=== PATIENT | female | born 1950 | race Caucasian/White ===

== ENCOUNTER 2024-06-27 12:10 | Emergency (ER) | payer MEDICARE, BC, SELFPAY ==
[2024-06-27 12:16] VITALS: BP 115/45
[2024-06-27 14:13] VITALS: BP 126/58
[2024-06-27 14:18] LABS: % Basophils 0.3 % (0-2); % Eosinophils 0.6 % (0-6); % Immature Granulocytes 0.3 % (0-0.5); % Lymphocytes 16.1 % (20.5-51.1); % Monocytes 11.3 % (1.7-9.3); % Neutrophils 71.4 % (42.2-75.2); Absolute Monocytes 0.7 10^3/uL (0.1-0.6); Absolute Neutrophils 4.5 10^3/uL (1.4-6.5); Hemoglobin 12.4 g/dL (12.0-16.0); Mean Corp Hgb Conc. 33.5 g/dL (33.0-37.0); Mean Corpuscular Hgb 32.5 pg (27.0-31.0); Mean Corpuscular Volume 96.9 fL (81.0-99.0); Mean Platelet Volume 11.2 fL (7.4-10.4); Nucleated Red Blood Cells % 0 %; Platelet Count 162 10^3/uL (130-400); Red Blood Cell Count 3.82 10^6/uL (4.20-5.40); Red Cell Dist. Width 13.2 % (11.5-14.5); White Blood Cell Count 6.3 10^3/uL (4.8-10.8)
[2024-06-27] MEDS: TYLENOL 1000 MG PO (14:27)
[2024-06-27] MEDS: TORADOL 15 MG IV (14:28)
[2024-06-27] MEDS: NSS 1000 IV (14:28)
[2024-06-27 14:42] LABS: COVID-19 Antigen Positive (Negative)
[2024-06-27 15:00] VITALS: BP 120/56
--- NOTE | 2024-06-27 15:04 | ED.GENMED ---
History of Present Illness
General
Chief Complaint: Generalized Pain
Source: patient
Exam Limitations: none
Time Seen by Provider: 06/27/24 12:43
Nursing documentation reviewed up to this point in time: agreed with
History of Present Illness
History of Present Illness:
The patient is 73-year-old female who reports that she just came home from [place] a few days ago, and about 3 days ago, she developed severe generalized weakness, headache, cough, and bodyaches. She reports that in the middle of the night about 3
days ago, she slipped and fell out of bed. She reports she fell onto her left side. She did not hit her head. She reports she has a history of chronic left-sided sacroiliac pain and feels she exacerbated pain in the area. Patient reports that
she felt so weak that she could not scream out loud enough for her to get her up off the floor. She reports she laid down on the floor for hours. She reports decreased appetite. She denies chest pain or shortness of breath. She denies
vision changes, focal weakness and numbness. She denies vomiting and diarrhea.
Past History
Past History
ED Past Medical History: GERD and Hypothyroidism
ED Past Surgical History: Cholecystectomy, Gynecological, Orthopedic and Tonsilectomy
Social History
Tobacco: Non-smoker
Alcohol: Other
Drug: None
Personal:
Living: with family
Employment: Other
Family History
Family History: Other
Review of Systems
Review of Systems
Allergies reviewed?: Yes
Other source history: family
All Other Systems: ROS reviewed and negative except as documented in HPI and ROS
Constitutional: Reports fatigue and chills
EENT: Reports other (Sinus congestion, runny nose)
Respiratory: Reports cough
Cardiac: Reports no symptoms
ABD/GI: Reports anorexia
: Reports no symptoms
Musculoskeletal: Reports joint swelling (' Left sacroiliac area'), muscle pain and muscle stiffness
Skin: Reports no symptoms
Neurological: Reports headache
Endocrine: Reports no symptoms
Hematologic/Lymphatic: Reports no symptoms
Psychiatric: Reports no symptoms
Phy Exam
Physical Exam
Physical Exam:
Physical Exam
General: Patient appears tired but nontoxic. Is conversational. Sounds nasally congested
Neck: supple. no meningeal signs. normal psoterior pharynx
Heart: s1/s2 regular rate and rhythm, no murmur. equal radial pulses. No chest wall tenderness
Lungs: no acute respiratory distress. clear bilaterally. Patient is coughing. No respiratory distress at all. No vertebral spine tenderness
Abdomen: normal bowel sounds. not tender. no CVAT. Soft throughout
Neuro: alert and oriented. no focal neurological deficits
Skin: no rash
Psychiatric: well kept. interactive and cooperative
Extremities: no edema. no calf tenderness. negative homans. good distal pulses. Atraumatic. Mild left buttock tenderness without any swelling or deformity. Strong pulses of bilateral feet
Course
Orders/Labs/Results
Orders:
Orders
06/27/24 14:11
COVID-19 Antigen Urgent
Source: Nasal Swab
Complete Blood Count/With Diff Urgent
Influenza A+B Rapid Molecular Urgent
VASU Source: Nasal Swab
Specimen Description:
06/27/24 14:20
0.9% Sodium Chloride 1000 ml [Nss] 1,000 ml IV BOLUS
Acetaminophen [Tylenol] 1,000 mg PO NOW STA
Ketorolac [Toradol] 15 mg IV NOW STA
06/27/24 14:21
CR Chest - 2 Views Urgent
Comment:
Reason For Exam: cough
06/27/24 14:22
Hip, Left 2-3 Views [CR Hip - LT w/wo Pel 2-3 Vw*] Urgent
Comment:
Reason For Exam: L sacroiliac pain, fall
Include a pelvis x-ray?: Yes
06/27/24 14:43
Comprehensive Metabolic Panel Urgent
Abnormal Lab Results
06/27/24 06/27/24
14:11 14:43
RBC 3.82 L 10^6/uL
(4.20-5.40)
MCH 32.5 H pg
(27.0-31.0)
MPV 11.2 H fL
(7.4-10.4)
Absolute Lymphs (auto) 1.0 L 10^3/uL
(1.2-3.4)
Absolute Monos (auto) 0.7 H 10^3/uL
(0.1-0.6)
Lymphocytes % 16.1 L %
(20.5-51.1)
Monocytes % 11.3 H %
(1.7-9.3)
Creatinine 1.1 H mg/dL
(0.6-1.0)
AST 39 H U/L
(14-36)
Alkaline Phosphatase 144 H U/L
(38-126)
Total Protein 5.9 L g/dl
(6.3-8.2)
SARS-CoV-2 Antigen Positive A
(Negative)
06/27/24 14:11
06/27/24 14:43
Vital Signs
Initial and Last Documented VS:
Initial Vital Signs
Temp Pulse Resp BP Pulse Ox
97.8 F 69 18 115/45 100
06/27/24 12:16 06/27/24 12:16 06/27/24 12:16 06/27/24 12:16 06/27/24 12:16
Last Documented Vital Signs
Temp Pulse Resp BP Pulse Ox
97.8 F 76 18 120/56 95
06/27/24 12:16 06/27/24 15:15 06/27/24 15:15 06/27/24 15:00 06/27/24 15:15
MDM/Problems Addressed
Differential Diagnosis Includes:
Pneumonia, acute viral illness such as COVID or influenza, lumbar spine fracture, left hip fracture, acute dehydration, acute rhabdomyolysis
MDM/Problems Addressed:
Patient presents with acute generalized weakness, chills, and cough
Chronic conditions affecting care:
Patient states she has chronic sacroiliac pain and this fall out of bed may have exacerbated this pain
Acute Exacerbation and/or Progression of Chronic Illness:
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
*Radiology
Radiology exam reviewed: preliminary read by ED provider (Chest x-ray read by me. No acute disease. Left hip x-ray and pelvis reviewed by me. No acute fracture) and radiology read reviewed
*Pulse Oximetry
Patient hypoxic: no
*EKG
Interpreted by ED Provider?: NA
*Assistant Women'S Basketball Coach Interpretation
Rate: normal
Rhythm: sinus
*Critical Care Note
Total Time (30-74mins, 75-104mins- exclusive of procedures): Not Applicable
Data Reviewed
Source: patient and spouse
Patient Management
Social determinants of health affecting care: Living situation and Strong social support
Escalation/DeEscalation of care consider admission/obs:
Patient states she feels much better. Symptoms are consistent with a viral illness/COVID. Patient is breathing comfortably without any tachypnea or hypoxia. She is able to self hydrate.
ED Attending Note
-
Portions of this chart may have been created with voice recognition software.� Occasional wrong word or��sound alike� substitutions may have occurred due to the inherent limitations of voice recognition software.
Discharge Plan
Departure
Patient Disposition: Home (Routine Discharge)
Date of Disposition: 06/27/24
Time of Disposition: 16:41
Patient with high blood pressure during this ER visit?: No
Condition: Good
Covid-19: Confirmed COVID-19
Discharge Problem:
COVID
Instructions: COVID-19 ED, Coronavirus Home Quarantine
Prescriptions:
No Action
prednisone 20 MG tablet
40 mg PO DAILY Qty: 6 0RF
oxycodone-acetaminophen 5 MG/325 MG tablet
1 tab PO Q4HPRN PRN (Reason: Pain) Qty: 15 0RF
Referrals:
Bryce Gómez MD [Family Provider] -
Activity Restrictions/Additional Instructions:
Take 650 mg of Tylenol every 4 hours for any fever. In addition, you could also take 400 mg of Advil/ibuprofen every 6-8 hours with food for fever or body discomfort
Interventions
Interventions:
*Risk Screen - Suicide Last Done: 06/27/24 12:16
*General Assessment Last Done: 06/27/24 12:16
*Neglect/Abuse Screening Last Done: 06/27/24 12:16
ED- Fall Risk Assessment Last Done: 06/27/24 14:47
*ED COVID-19 Vaccine History Last Done: 06/27/24 16:53
*Nursing Disposition Last Done: 06/27/24 16:53
Discharge Date and Time
Print Language: CITIZEN OF [place]
[2024-06-27 15:11] LABS: ALT (SGPT) 21 U/L (0-35); AST (SGOT) 39 U/L (14-36); Albumin 3.5 g/dl (3.5-5.0); Alkaline Phosphatase 144 U/L (38-126); Blood Urea Nitrogen 17 mg/dl (7-17); Calcium 8.7 mg/dl (8.4-10.2); Carbon Dioxide 22 mmol/L (22-30); Chloride 107 mmol/L (98-107); Glucose 87 mg/dl (70-99); Potassium 4.4 mmol/L (3.5-5.1); Sodium 138 mmol/L (135-145); Total Bilirubin 0.5 mg/dl (0.2-1.3); Total Protein 5.9 g/dl (6.3-8.2); eGFR 53.06
== END 2024-06-27 17:05 | disposition home or self-care (01) ==
LOC: EMR 12:10
PROVIDERS: EMERGENCY PHYSICIAN Emergency Medicine; FAMILY PHYSICIAN Internal Medicine
DX: U07.1 COVID-19 (principal); R51.9 Headache, unspecified; M79.10 Myalgia, unspecified site; W06.XXXA Fall from bed, initial encounter; M53.3 Sacrococcygeal disorders, not elsewhere classified; Z11.52 Encounter for screening for COVID-19; E03.9 Hypothyroidism, unspecified; K21.9 Gastro-esophageal reflux disease without esophagitis; Z87.820 Personal history of traumatic brain injury; Z98.84 Bariatric surgery status; Z90.49 Acquired absence of other specified parts of digestive tract; Z88.1 Allergy status to other antibiotic agents; Z88.2 Allergy status to sulfonamides; Z88.7 Allergy status to serum and vaccine
CPT/HCPCS: 99284; 96374; 96361; 71046; 73502; 80053; 85025; 87502; 87811

== ENCOUNTER 2025-07-04 17:25 | Emergency (ER) | payer MEDICARE, BC, SELFPAY ==
[2025-07-04] VITALS (7 sets, daily range): BP systolic 99–142; BP diastolic 52–65
[2025-07-04] MEDS: NSS 1000 IV (20:36)
[2025-07-04 20:38] LABS: Hematocrit 39.6 % (37.0-47.0); Hemoglobin 12.6 g/dL (12.0-16.0); Mean Corp Hgb Conc. 31.8 g/dL (33.0-37.0); Mean Corpuscular Volume 96.1 fL (81.0-99.0); Nucleated Red Blood Cells % 0 %; Platelet Count 253 10^3/uL (130-400); Red Cell Dist. Width 13.4 % (11.5-14.5)
[2025-07-04 20:49] LABS: COVID-19 Antigen Negative (Negative)
[2025-07-04 21:00] LABS: ALT (SGPT) 28 U/L (0-35); AST (SGOT) 37 U/L (14-36); Albumin 4.4 g/dl (3.5-5.0); Alkaline Phosphatase 172 U/L (38-126); Blood Urea Nitrogen 11 mg/dl (7-17); Calcium 9.5 mg/dl (8.4-10.2); Carbon Dioxide 23 mmol/L (22-30); Chloride 107 mmol/L (98-107); Glucose 102 mg/dl (70-99); Magnesium 2.5 mg/dl (1.6-2.3); Potassium 4.7 mmol/L (3.5-5.1); Sodium 137 mmol/L (135-145); Total Protein 7.5 g/dl (6.3-8.2); eGFR 52.73
[2025-07-04 21:21] LABS: Urine Character Clear (Clear)
[2025-07-04 21:35] LABS: Urine Red Blood Cell 0-2 /HPF (0-2); Urine Squamous Cell 0-2 /LPF (Few); Urine White Cell 0-2 /HPF (0-5)
--- NOTE | 2025-07-04 22:19 | ED.GENMED ---
History of Present Illness
General
Chief Complaint: Abdominal Pain
Source: patient
Exam Limitations: none
Time Seen by Provider: 07/04/25 19:40
Nursing documentation reviewed up to this point in time: agreed with
History of Present Illness
History of Present Illness:
74-year-old female presenting to the emergency department with 3-4 days of diarrhea and fatigue. Patient states that night she started with nonbloody diarrhea which has been persistent throughout the weekend. She also reports feeling
extremely fatigued over the past few days and has been sleeping much more than usual. She has taken multiple Imodium without relief of symptoms. While she does report a history of IBS and somewhat frequent diarrhea�she states this is much more
than typical.
Patient denies any associated fever, chills, dysuria. She has not had any abdominal pain or nausea/vomiting. No chest pain or shortness of breath. She has not had any viral URI symptoms. No changes in mental status or confusion.
Of note�patient did return from a cruise 4 days prior to onset of symptoms. She has not had any recent hospitalizations or antibiotic use.
Past History
Past History
ED Past Medical History: GERD and Hypothyroidism
ED Past Surgical History: Cholecystectomy, Gynecological, Orthopedic and Tonsilectomy
Social History
Tobacco: Non-smoker
Alcohol: Other
Drug: None
Personal:
Living: with family
Employment: Other
Family History
Family History: Other
Review of Systems
Review of Systems
Allergies reviewed?: Yes
All Other Systems: ROS reviewed and negative except as documented in HPI and ROS
Phy Exam
Physical Exam
Physical Exam:
Vitals: Patient's vital signs are stable. Afebrile
General: Patient is in no distress.
Skin: Warm and dry, no rashes or lesions
Head: Normocephalic, atraumatic
Eyes: Sclera nonicteric. EOMs intact. No nystagmus.
Throat: Protecting airway
Neck: Normal ROM, no cervical spine tenderness, no meningismus
Cardiac: Regular rate and rhythm, no murmurs.
Pulm: Normal respiratory effort, no wheezes, rales, rhonchi heard on exam
.
Abdomen: Abdomen soft. Mild tenderness in right lower abdomen. No rebound tenderness or guarding. No CVA tenderness
Extremities: No evidence of cyanosis or edema. 2+ palpable DP pulses bilaterally
Neuro: AAOx3. Grossly intact.
Psychiatric: Normal affect.
Course
Orders/Labs/Results
Orders:
Orders
07/04/25 20:02
CT Abd/pelvis W Iv Cont Urgent
Comment:
Reason For Exam: Abdominal pain, diarrhea
0.9% Sodium Chloride 1000 ml [Nss] 1,000 ml IV BOLUS
07/04/25 20:03
Electrocardiogram (*1) Urgent
Reason for Study: Fatigue / Weakness
EKG- Treatment ONCE
07/04/25 20:11
COVID-19 Antigen Urgent
Source: Nasal Swab
Complete Blood Count/With Diff Urgent
Comprehensive Metabolic Panel Urgent
Magnesium Urgent
CDIFF [C difficile Antigen & Toxins] Urgent
VASU Source: Feces/Stool
Specimen Description:
Date Specimen was Collected: 07/04/25
Time Specimen was Collected: 20:07
Influenza A+B Rapid Molecular Urgent
VASU Source: Nasal Swab
Specimen Description:
Stool Culture Urgent
VASU Source: Feces/Stool
Specimen Description:
Date Specimen was Collected: 07/04/25
Time Specimen was Collected: 20:07
07/04/25 21:14
Urinalysis Reflex To Culture Urgent
Date Specimen was Collected: 07/04/25
Time Specimen was Collected: 21:09
Urine Microscopic Reflex Cult Urgent
Abnormal Lab Results
07/04/25 07/04/25
20:11 21:14
RBC 4.12 L 10^6/uL
(4.20-5.40)
MCHC 31.8 L g/dL
(33.0-37.0)
MPV 10.5 H fL
(7.4-10.4)
Absolute Monos (auto) 0.7 H 10^3/uL
(0.1-0.6)
Monocytes % 9.4 H %
(1.7-9.3)
Creatinine 1.1 H mg/dL
(0.6-1.0)
Glucose 102 H mg/dl
(70-99)
Magnesium 2.5 H mg/dl
(1.6-2.3)
AST 37 H U/L
(14-36)
Alkaline Phosphatase 172 H U/L
(38-126)
Ur Occult Blood Reflex 1+ A
(Negative)
Urine Bacteria (Reflex) Few A
(Negative)
07/04/25 20:11
07/04/25 20:11
Vital Signs
Initial and Last Documented VS:
Initial Vital Signs
Temp Pulse Resp BP Pulse Ox
98.9 F 72 16 99/61 99
07/04/25 17:28 07/04/25 17:28 07/04/25 17:28 07/04/25 17:28 07/04/25 17:28
Last Documented Vital Signs
Temp Pulse Resp BP Pulse Ox
97.7 F 64 6 142/59 99
07/04/25 22:32 07/04/25 22:45 07/04/25 22:45 07/04/25 22:30 07/04/25 22:45
MDM/Problems Addressed
Differential Diagnosis Includes:
Not limited to: Viral illness, acute dehydration, colitis, diverticulitis, appendicitis, cystitis, etc.
MDM/Problems Addressed:
74-year-old female presenting with 4 days of persistent, non-bloody diarrhea and fatigue. No associated fever, vomiting, abdominal pain, changes in mental status, chest pain, or shortness of breath. Vitals and physical exam as above.
Patient appears tired however is non-toxic. She�s A & O without any neurologic deficits. She is moving all extremities. Cardio/pulmonary assessment unremarkable. Abdomen soft with mild tenderness in RLQ.
Differential broad and includes viral illness or acute dehydration secondary frequent diarrhea. Possible intra-abdominal infection such as colitis, diverticulitis, appendicitis.
ED plan: labs, UA, stool culture. Will check CT scan abdomen/pelvis, give IV fluids and reassess.
Update: CBC without acute findings. Chemistry without any significant electrolyte abnormalities. Alkaline phosphatase was found to be elevated, which has also been elevated in the past. I did make patient aware of this and recommended repeat labs
with primary care. CT scan without any acute findings. Urine does not appear infected. Patient was able to provide a stool sample however results pending.
She has received a liter of IV fluids in the ED. She appears well and is eager for discharge. Favor symptoms likely secondary to viral illness, especially with patient�s recent travel on cruise ship. No findings on work up in ED consistent with
bacterial etiology or acute intra-abdominal infection.
Feel patient stable for discharge home with outpatient primary care follow-up. Will hold antibiotics at this time without any clear evidence of bacterial etiology pending stool culture. Advised PO hydration and bland diet. She will follow with PCP
later this week. Return precautions discussed.
Chronic conditions affecting care:
IBS
Acute Exacerbation and/or Progression of Chronic Illness:
N/A
*Radiology
Radiology exam reviewed: radiology read reviewed
*Pulse Oximetry
SaO2: 99
Oxygen Mode of Delivery: Room air
Patient hypoxic: no
*EKG
Interpreted by ED Provider?: Yes
EKG Intrepretation Date: 07/04/25
Interpretation: normal
Comparison EKG: no comparison EKG present
Heart Rate: 55
Rate: bradycardiac
Rhythm: sinus
[place]: normal axis
Interval: normal QT interval
QRS Pattern: normal QRS
Ischemia: no ischemia
*Social Worker Clinical Interpretation
Rate: bradycardiac
Interpretation: normal
Heart Rate: 58
Rhythm: sinus
*Critical Care Note
Total Time (30-74mins, 75-104mins- exclusive of procedures): Not Applicable
ED Attending Note
-
Portions of this chart may have been created with voice recognition software.� Occasional wrong word or��sound alike� substitutions may have occurred due to the inherent limitations of voice recognition software.
Discharge Plan
Departure
Patient Disposition: Home (Routine Discharge)
Date of Disposition: 07/04/25
Time of Disposition: 22:45
Patient with high blood pressure during this ER visit?: Yes
Condition: Good
Covid-19: Negative COVID-19
Discharge Problem:
Diarrhea, Fatigue
Instructions: Diarrhea in teens and adults, Fatigue (DC), BLOOD PRESSURE
Prescriptions:
No Action
prednisone 20 MG tablet
40 mg PO DAILY Qty: 6 0RF
oxycodone-acetaminophen 5 MG/325 MG tablet
1 tab PO Q4HPRN PRN (Reason: Pain) Qty: 15 0RF
Referrals:
UNKNOWN - PT DOES,NOT KNOW [Family Provider]
Activity Restrictions/Additional Instructions:
RETURN TO THE EMERGENCY DEPARTMENT ANY FEVER/CHILLS, ABDOMINAL PAIN, INTRACTABLE NAUSEA/VOMITING OR PERSISTENT DIARRHEA, SIGNIFICANT LIGHTHEADEDNESS OR WEAKNESS, WORSENING IN CURRENT SYMPTOMS, OR ANY OTHER CONCERNS
-As discussed�your lab work showed no acute abnormalities. Your alkaline phosphatase was elevated emergency department. Please have this rechecked with your primary care to ensure returns normal. Your urine did not show evidence of infection.
Your CT scan of your abdomen showed no acute findings.
- We will contact you if your stool studies come back positive.
- It is important stay well-hydrated. I would follow a bland diet.
-Please follow-up with your primary care provider later this week for further evaluation/management to ensure that your symptoms are improving
Monitor your symptoms and to the emergency department with any acute worsening/new symptoms or any other concerns
Interventions
Interventions:
*Risk Screen - Suicide Last Done: 07/04/25 17:28
*General Assessment Last Done: 07/04/25 20:30
*Neglect/Abuse Screening Last Done: 07/04/25 17:28
*Nursing Disposition Last Done: 07/04/25 23:05
CY-Ltemyd-Nerfmifwyy Assessment Last Done: 07/04/25 20:30
Discharge Date and Time
Discharge Date/Time: 07/04/25 23:06
Print Language: [place]
== END 2025-07-04 23:06 | disposition home or self-care (01) ==
LOC: EMR 17:25
PROVIDERS: Physician Assistant; EMERGENCY PHYSICIAN Emergency Medicine
DX: R19.7 Diarrhea, unspecified (principal); R53.83 Other fatigue; E03.9 Hypothyroidism, unspecified; Z11.52 Encounter for screening for COVID-19; Z90.49 Acquired absence of other specified parts of digestive tract
CPT/HCPCS: 99284; 96360; 74177; 80053; 81003; 81015; 83735; 85025; 87045; 87046; 87324; 87427; 87449; 87502; 87811; 93005; Q9967

== ENCOUNTER 2025-10-03 19:15 | Emergency (ER) | payer MEDICARE, BC, SELFPAY ==
[2025-10-03 19:17] VITALS: BP 120/54
[2025-10-03 19:39] LABS: Hematocrit 33.8 % (37.0-47.0); Hemoglobin 11.0 g/dL (12.0-16.0); Mean Corp Hgb Conc. 32.5 g/dL (33.0-37.0); Mean Corpuscular Volume 94.2 fL (81.0-99.0); Nucleated Red Blood Cells % 0 %; Platelet Count 219 10^3/uL (130-400); Red Cell Dist. Width 13.0 % (11.5-14.5)
[2025-10-03 19:54] LABS: ALT (SGPT) 23 U/L (0-35); AST (SGOT) 30 U/L (14-36); Albumin 3.9 g/dl (3.5-5.0); Alkaline Phosphatase 133 U/L (38-126); Blood Urea Nitrogen 22 mg/dl (7-17); Calcium 8.9 mg/dl (8.4-10.2); Carbon Dioxide 25 mmol/L (22-30); Chloride 103 mmol/L (98-107); Glucose 91 mg/dl (70-99); Potassium 5.1 mmol/L (3.5-5.1); Sodium 131 mmol/L (135-145); Total Protein 6.9 g/dl (6.3-8.2); eGFR > 60.00
[2025-10-03 19:55] LABS: COVID-19 Antigen Negative (Negative)
[2025-10-03 20:05] LABS: Troponin I < 0.012 ng/ml
[2025-10-03 22:52] VITALS: BP 109/57
[2025-10-03 23:00] VITALS: BP 111/53
[2025-10-03 23:04] VITALS: BMI 28.7
[2025-10-04] VITALS: BP 116/62
--- NOTE | 2025-10-04 00:55 | ED.GENMED ---
History of Present Illness
General
Chief Complaint: Chest Problem
Source: patient
Exam Limitations: none
Time Seen by Provider: 10/04/25 00:27
Nursing documentation reviewed up to this point in time: agreed with
History of Present Illness
History of Present Illness:
This is a 74-year-old female with a past medical history of GERD, hypothyroidism, who presents to the ER today with concerns of congestion in her chest and a cough for the past 2 days. Currently, no chest pain. She denies shortness of breath. She
feels like she has body aches as well and is concerned that she has the flu. She denies sick contacts. She is going on a trip in 8 days. She is concerned about worsening illness and is requesting antibiotics in case her symptoms get worse. She
denies any lightheadedness or dizziness. She denies syncopal episodes. She has not had any palpitations.She reports that she tolerates amoxicillin well but is allergic to clavulanic acid. She denies abdominal pain, nausea, or vomiting. She has
also had a sore throat. She has been eating and drinking okay.
She denies any fever. She feels fatigued.
Past History
Past History
ED Past Medical History: GERD and Hypothyroidism
ED Past Surgical History: Cholecystectomy, Gynecological, Orthopedic and Tonsilectomy
Social History
Tobacco: Non-smoker
Alcohol: Other
Drug: None
Personal:
Living: with family
Employment: Other
Family History
Family History: Other
Review of Systems
Review of Systems
All Other Systems: ROS reviewed and negative except as documented in HPI and ROS
Phy Exam
Physical Exam
Physical Exam:
GEN: Well appearing, NAD, WDWN
Eyes: PERRLA, EOMs intact, no scleral icterus
HENT: NCAT, oral mucosa moist, no cervical adenopathy.
Lungs: CTAB, no wheezes, rales, rhonchi, normal chest wall excursion
Cardiac: RRR, no M/R/G, no peripheral edema. Radial pulses 2+ bilat
Abdomen: Non-distended
Neuro: AO x 3, no focal deficits to BUE/BLE
Skin: No rashes, petechiae. Normal color, no pallor or jaundice.
Psych: Calm, cooperative, proper hygiene
Course
Orders/Labs/Results
Orders:
Orders
10/03/25 19:18
Electrocardiogram (*1) Urgent
Reason for Study: Chest Pain
EKG- Treatment ONCE
10/03/25 19:30
COVID-19 Antigen Urgent
Source: Nasal Swab
Complete Blood Count/With Diff Urgent
Comprehensive Metabolic Panel Urgent
Troponin I Urgent
Influenza A+B Rapid Molecular Urgent
VASU Source: Nasal Swab
Specimen Description:
10/04/25 00:54
CR Chest - 2 Views Urgent
Comment:
Reason For Exam: chest congestion, cough
Abnormal Lab Results
10/03/25
19:30
RBC 3.59 L 10^6/uL
(4.20-5.40)
Hgb 11.0 L g/dL
(12.0-16.0)
Hct 33.8 L %
(37.0-47.0)
MCHC 32.5 L g/dL
(33.0-37.0)
MPV 10.9 H fL
(7.4-10.4)
Absolute Lymphs (auto) 1.0 L 10^3/uL
(1.2-3.4)
Absolute Monos (auto) 0.7 H 10^3/uL
(0.1-0.6)
Lymphocytes % 15.5 L %
(20.5-51.1)
Monocytes % 11.7 H %
(1.7-9.3)
Sodium 131 L mmol/L
(135-145)
BUN 22 H mg/dl
(7-17)
Alkaline Phosphatase 133 H U/L
(38-126)
10/03/25 19:30
10/03/25 19:30
Vital Signs
Initial and Last Documented VS:
Initial Vital Signs
Temp Pulse Resp BP Pulse Ox
97.8 F 72 16 120/54 96
10/03/25 19:17 10/03/25 19:17 10/03/25 19:17 10/03/25 19:17 10/03/25 19:17
Last Documented Vital Signs
Temp Pulse Resp BP Pulse Ox
97.8 F 78 16 109/48 95
10/03/25 19:17 10/04/25 01:30 10/04/25 01:30 10/04/25 02:41 10/04/25 01:30
MDM/Problems Addressed
Differential Diagnosis Includes:
ddx include pneumonia, sinusitis, viral syndrome, pleurisy
MDM/Problems Addressed:
74-year-old female with a past medical history of GERD, hypothyroidism, presents to ER today with concerns of generalized fatigue, body aches, and coughing and other flulike symptoms. She has not had a fever at home. She took 1 tablet of
amoxicillin at home. She is concerned she has the flu. On physical exam she is very well-appearing and in no acute distress. Her vital signs are stable. She is afebrile. Labs reviewed, no leukocytosis noted. She is mildly anemic. She is
mildly hyponatremic, otherwise labs unremarkable. Troponin undetectable.
ECG without ischemic changes, rate of 68, normal intervals. X-ray without signs of pneumonia or pneumothorax. Suspect viral syndrome. Patient is going away on a trip later this week and I did give her prescription for an antibiotic that she can
fill should she develop worsening symptoms. I advised patient to check in with her primary care provider before the trip and consider repeating labs and repeat physical exam before she goes. Patient expressed understanding. Patient stable for
discharge.
*Pulse Oximetry
SaO2: 100
Oxygen Mode of Delivery: Room air
Patient hypoxic: no
*Critical Care Note
Total Time (30-74mins, 75-104mins- exclusive of procedures): Not Applicable
Data Reviewed
Review of Other/Old Records Reveals: Records (Reviewed ER physician documentation from 07/04/2025 patient seen for diarrhea, had unremarkable workup, was discharged) and Discharge Summary (no hospital discharge summary to review )
ED Attending Note
-
Portions of this chart may have been created with voice recognition software.� Occasional wrong word or��sound alike� substitutions may have occurred due to the inherent limitations of voice recognition software.
Discharge Plan
Departure
Patient Disposition: Home (Routine Discharge)
Date of Disposition: 10/04/25
Time of Disposition: 02:29
Patient with high blood pressure during this ER visit?: No
Condition: Good
Discharge Problem:
Upper respiratory infection, Chest congestion
Instructions: Chest Pain (DC), Cough, runny nose, and colds
Prescriptions:
New
amoxicillin 500 mg capsule
1,000 mg PO TID 5 Days Qty: 30 0RF
No Action
prednisone 20 MG tablet
40 mg PO DAILY Qty: 6 0RF
oxycodone-acetaminophen 5 MG/325 MG tablet
1 tab PO Q4HPRN PRN (Reason: Pain) Qty: 15 0RF
Referrals:
Bryce Gómez MD [Family Provider, Internal Medicine]
Activity Restrictions/Additional Instructions:
Amoxicillin has been sent to your pharmacy which you can begin taking before your trip should you develop persistence of cough and congestion, however recommend checking in with your primary care provider again before your trip for reassessment and
for repeat blood work.
Please continue monitor your symptoms. Should you develop fevers or chills, intractable nausea or vomiting, abdominal pain, chest pain, trouble breathing, or any other signs or symptoms worrisome to you
Interventions
Interventions:
*General Assessment Last Done: 10/03/25 23:04
*Neglect/Abuse Screening Last Done: 10/03/25 19:21
*ED COVID-19 Vaccine History Last Done: 10/03/25 23:04
*ED Influenza Vaccine History Last Done: 10/03/25 23:04
[facility] Fall Risk Assessment Tool Last Done: 10/03/25 23:04
*Risk Screen - Suicide (C-SSRS) Last Done: 10/03/25 19:21
*Nursing Disposition Last Done: 10/04/25 02:41
ED- Cardiac Assessment Last Done: 10/03/25 23:07
ED- Pulmonary Assessment Last Done: 10/03/25 23:07
Discharge Date and Time
Discharge Date/Time: 10/04/25 02:41
Print Language: ARABIC
[2025-10-04 01:00] VITALS: BP 101/47
[2025-10-04 02:41] VITALS: BP 109/48
== END 2025-10-04 02:41 | disposition home or self-care (01) ==
LOC: EMR 19:15
PROVIDERS: Emergency Medicine; EMERGENCY PHYSICIAN Emergency Medicine; FAMILY PHYSICIAN Internal Medicine
DX: J06.9 Acute upper respiratory infection, unspecified (principal); R09.89 Other specified symptoms and signs involving the circulatory and respiratory systems; D64.9 Anemia, unspecified; E03.9 Hypothyroidism, unspecified; Z88.0 Allergy status to penicillin; Z11.52 Encounter for screening for COVID-19
CPT/HCPCS: 99285; 71046; 80053; 84484; 85025; 87502; 87811; 93005